=== PATIENT | female | born 1960 | race Caucasian/White ===

== ENCOUNTER → 2017-11-19 | Outpatient (CLI) | payer OTHER ==
[~2017-11-19] MED LIST: ALBU90OI61; ESTR2; FLUO10; MEDR2.5; Norco 10-325 T1 EACH; TRAZ50
== END ==
LOC: LAB 07:58 → LAB SHORT 07:58
DX: R21 Rash and other nonspecific skin eruption (principal)
CPT/HCPCS: 88305; 88312

== ENCOUNTER → 2018-12-21 | Outpatient (CLI) | payer OTHER ==
[2018-12-26 15:06] LABS: HPV 16 Negative (Negative); HPV 18 Negative (Negative); HPV OTHER HR TYPES Negative (Negative)
== END | disposition home or self-care (01) ==
LOC: LAB SHORT 19:22 → LAB 19:22
PROVIDERS: Physician Assistant
DX: Z12.4 Encounter for screening for malignant neoplasm of cervix (principal)
CPT/HCPCS: 87624; G0145

== ENCOUNTER 2019-09-28 15:19 | Observation (INO) | payer OTHER ==
[~2019-09-28] VITALS: Ht 165.1 cm; Wt 74.8 kg
[~2019-09-28 15:19] MED LIST changes: -TRAZ50
[2019-09-28 16:01] LABS: BASOPHILS ABSOLUTE AUTO 0.05 K/mm3 (0.00-0.23); BASOPHILS PERCENT AUTO 1 % (0-2); EOSINOPHILS ABSOLUTE AUTO 0.18 K/mm3 (0.00-0.68); EOSINOPHILS PERCENT AUTO 3 % (0-6); Hematocrit 44.8 % (33.0-51.0); Hemoglobin 14.2 g/dL (11.5-16.0); IMMATURE GRAN ABSOLUTE AUTO 0.01 K/mm3 (0.00-0.10); IMMATURE GRAN PERCENT AUTO 0 % (0-1); LYMPHOCYTES ABSOLUTE AUTO 2.88 K/mm3 (0.84-5.20); LYMPHOCYTES PERCENT AUTO 45 % (21-46); MONOCYTES PERCENT AUTO 8 % (4-13); Mean Corpuscular HGB 28.1 pg (26.0-34.0); Mean Corpuscular HGB Conc 31.7 g/dL (31.5-36.5); Mean Corpuscular Volume 89 fL (80-100); Mean Platelet Volume 9.6 fL (9.1-12.4); NEUTROPHILS ABSOLUTE AUTO 2.75 K/mm3 (1.96-9.15); NEUTROPHILS PERCENT AUTO 43 % (41-73); Platelet Count 291 K/mm3 (150-400); RDW Coefficient Variation 13.2 % (11.7-14.2); Red Blood Cell Count 5.05 M/mm3 (3.80-5.20); White Blood Cell Count 6.37 K/mm3 (4.00-11.30)
[2019-09-28 16:09] LABS: Source, Urine Clean Catch
[2019-09-28 16:11] LABS: Alanine Aminotransfer (ALT/SGP 17 U/L (12-78); Albumin, Blood 3.8 g/dL (3.4-5.0); Albumin/Globulin Ratio 1.2 (0.8-1.8); Alk Phos 51 U/L (50-136); Anion Gap 1 mmol/L (6-16); Aspartate Aminotrans (AST/SGOT 15 U/L (12-37); Bilirubin, Total 0.5 mg/dL (0.1-1.0); Blood Urea Nitrogen 8 mg/dL (8-24); Bun/Creatinine Ratio 10.3 (12.0-20.0); CO2, Blood 30 mmol/L (21-32); Calcium, Blood 8.9 mg/dL (8.5-10.1); Chloride, Blood 109 mmol/L (98-108); Creatinine, Blood 0.78 mg/dL (0.40-1.00); Ethanol (Alcohol), Blood, Med <3 mg/dL; Globulin, Blood 3.1 g/dL (2.2-4.0); Glomerular Filtration Rate >60 (60-); Glucose, Blood 97 mg/dL (70-99); Potassium, Blood 3.5 mmol/L (3.5-5.5); Salicylate 3.2 mg/dL (2.8-20.0); Sodium, Blood 140 mmol/L (136-145); Total Protein, Blood 6.9 g/dL (6.4-8.2)
[2019-09-28 16:12] LABS: Acetaminophen, Random <2.0 ug/mL (10.0-30.0)
[2019-09-28 16:12] LABS: Bilirubin, Urine Neg (Neg); Blood, Urine Neg (Neg); Glucose Qualitative, Urine Neg (Neg); Ketones, Urine Neg (Neg); Leukocyte Esterase, Urine Neg (Neg); Nitrite, Urine Neg (Neg); Protein, Urine Neg (Neg); Urobilinogen, Urine NORM (Normal)
[2019-09-28 16:20] LABS: Appearance, Urine Clear (Clear); Color, Urine Yellow (P-Yellow)
[2019-09-28 16:33] LABS: U Cannabinoids Screen DETECTED
[2019-09-28 16:34] LABS: U Amphetamine Screen Not Detected; U Barbituate Screen Not Detected; U Benzodiazapine Screen Not Detected; U Buprenorphine Screen Not Detected; U Cocaine Screen Not Detected; U Methadone Screen Not Detected; U Methamphetamine Screen Not Detected; U Opiates Screen Not Detected; U Oxycodone Screen Not Detected; U Propoxyphene Screen Not Detected
[2019-09-28] MEDS ORDERED: Seroquel Xr50 MG (18:49)
[2019-09-29] MEDS ORDERED: TRAZ150T57 PO (13:04)
[2019-09-29] MEDS ORDERED: LEVSOD25 PO (13:05)
[2019-09-29] MEDS ORDERED: VENL150ER PO (13:05)
[2019-09-29] MEDS ORDERED: TRELEGY ELLIPT1 EACH INH (13:06)
[2019-09-29] MEDS ORDERED: Zoloft100 MG PO (13:07)
[2019-09-29] MEDS ORDERED: CLON.5 PO (13:08)
== END 2019-09-29 19:00 | disposition home or self-care (01) ==
LOC: ER 15:19 → EOR 16:15
PROVIDERS: ADMIT Emergency Medicine
DX: T42.4X2A Poisoning by benzodiazepines, intentional self-harm, initial encounter (principal); F41.9 Anxiety disorder, unspecified; F17.200 Nicotine dependence, unspecified, uncomplicated; F32.9 Major depressive disorder, single episode, unspecified; F19.11 Other psychoactive substance abuse, in remission; Z88.1 Allergy status to other antibiotic agents; Z88.2 Allergy status to sulfonamides; Z79.899 Other long term (current) drug therapy
CPT/HCPCS: 80053; 81003; 81025; 84443; 85025; 93005; 93010; 99285-25; G0378; G0480

== ENCOUNTER 2020-07-20 20:48 | Observation (INO) | payer OTHER ==
[~2020-07-20] VITALS: Ht 165.1 cm; Wt 70.3 kg
[~2020-07-20 20:48] MED LIST changes: +CLON.5 PO; +LEVSOD25 PO; +Seroquel Xr50 MG; +TRAZ150T57 PO; +TRELEGY ELLIPT1 EACH INH; +VENL150ER PO; +Zoloft100 MG PO
[2020-07-20 21:56] LABS: BASOPHILS ABSOLUTE AUTO 0.04 K/mm3 (0.00-0.23); BASOPHILS PERCENT AUTO 1 % (0-2); EOSINOPHILS ABSOLUTE AUTO 0.12 K/mm3 (0.00-0.68); EOSINOPHILS PERCENT AUTO 2 % (0-6); Hematocrit 41.8 % (33.0-51.0); Hemoglobin 13.5 g/dL (11.5-16.0); IMMATURE GRAN ABSOLUTE AUTO 0.02 K/mm3 (0.00-0.10); IMMATURE GRAN PERCENT AUTO 0 % (0-1); LYMPHOCYTES ABSOLUTE AUTO 2.81 K/mm3 (0.84-5.20); LYMPHOCYTES PERCENT AUTO 35 % (21-46); MONOCYTES ABSOLUTE AUTO 0.59 K/mm3 (0.16-1.47); MONOCYTES PERCENT AUTO 7 % (4-13); Mean Corpuscular HGB 28.7 pg (26.0-34.0); Mean Corpuscular HGB Conc 32.3 g/dL (31.5-36.5); Mean Corpuscular Volume 89 fL (80-100); Mean Platelet Volume 8.9 fL (9.1-12.4); NEUTROPHILS ABSOLUTE AUTO 4.35 K/mm3 (1.96-9.15); NEUTROPHILS PERCENT AUTO 55 % (41-73); Platelet Count 304 K/mm3 (150-400); RDW Coefficient Variation 12.9 % (11.7-14.2); RDW Standard Deviation 42.3 fL (35.1-46.3); White Blood Cell Count 7.93 K/mm3 (4.00-11.30)
[2020-07-20 22:16] LABS: Alanine Aminotransfer (ALT/SGP 35 U/L (12-78); Albumin, Blood 3.7 g/dL (3.4-5.0); Albumin/Globulin Ratio 1.2 (0.8-1.8); Alk Phos 50 U/L (50-136); Anion Gap 6 mmol/L (6-16); Aspartate Aminotrans (AST/SGOT 38 U/L (12-37); Bilirubin, Total 0.5 mg/dL (0.1-1.0); Blood Urea Nitrogen 11 mg/dL (8-24); Bun/Creatinine Ratio 14.3 (12.0-20.0); CO2, Blood 24 mmol/L (21-32); Chloride, Blood 110 mmol/L (98-108); Creatinine, Blood 0.77 mg/dL (0.40-1.00); Globulin, Blood 3.1 g/dL (2.2-4.0); Glomerular Filtration Rate >60 (60-); Glucose, Blood 94 mg/dL (70-99); Potassium, Blood 3.6 mmol/L (3.5-5.5); Sodium, Blood 140 mmol/L (136-145); Total Protein, Blood 6.8 g/dL (6.4-8.2); Troponin I <0.015 ng/mL (0.000-0.040)
[2020-07-20 22:45] LABS: Source, Urine Clean Catch
[2020-07-20 22:48] LABS: Bilirubin, Urine Neg (Neg); Blood, Urine Neg (Neg); Glucose Qualitative, Urine Neg (Neg); Ketones, Urine Neg (Neg); Leukocyte Esterase, Urine Neg (Neg); Nitrite, Urine Neg (Neg); Protein, Urine Neg (Neg); Urobilinogen, Urine NORM (Normal)
[2020-07-20 22:49] LABS: Appearance, Urine Clear (Clear); Color, Urine Yellow (P-Yellow)
[2020-07-21 01:23] LABS: Influenza A, PCR Negative (NEGATIVE); Influenza B, PCR Negative (NEGATIVE); Resp Syncytial Virus, PCR Negative (NEGATIVE); SARS-Cov-2 (COVID-19) PCR, MMC Negative (NEGATIVE)
--- NOTE | 2020-07-21 06:16 | NUR ---
SHIFT SUMMARY: VAL IS A&OX4, VSS, INDEPENDENT IN THE ROOM. SHE IS LYING IN BED WITH EVEN, UNLABORED RESPIRATIONS. CALL LIGHT AND BEDSIDE TABLE WITHIN REACH. WILL REPORT TO DAY SHIFT RN.
--- NOTE | 2020-07-21 06:19 | NUR ---
SHIFT SUMMARY NEW ADMISSION THIS AM. NPO. DISCOMFORT DECREASED WITH 1MG IV DILAUDID X1 SINCE ARRIVAL TO FLOOR. DENIES NAUSEA/EMESIS. PT REPORTING DISCOMFORT SINCE SURGERY 4 YEARS PRIOR WITH AN ACUTE SHARP INCREASE SINCE 1400 ON 07/20. IVF PER ORDERS. ORIENTED TO ROOM + CALL LIGHT USE. GI CONSULT TODAY. PT CURRENTLY RESTING WITH CALL LIGHT IN REACH.
[2020-07-21] MEDS ORDERED: OMEP20ER PO (13:27)
[2020-07-21] MEDS ORDERED: TRAM50 PO (13:29)
--- NOTE | 2020-07-21 14:09 | NUR ---
DISCHARGE SUMMARY ACUTE GASTRITIS, A/O X4, VSS, INDEPENDENT IN ROOM, TOLERATING PO, PAIN WELL CONTROLLED. DISCUSSED DISCHARGE INSTRUCTIONS W/ PT & FAMILY MEMBER, WENT OVER NEW AND CHANGED MEDICATIONS, FOLLOW UP APPOINTMENTS, GAVE PRINTED INSTRUCTIONS AND EDUCATION TO PT. GAVE HARD SCRIPT FOR NARCOTIC PAIN MEDICATION TO PT. PT LEFT THE SURGICAL UNIT VIA WHEELCHAIR W/ ALL PERSONAL POSSESSIONS. CLEARED PT TO DISCHARGE PRIOR TO RECEIVING GI CONSULT. PT REPORTS NOT HAVING ANY QUESTIONS REGARDING ANY DISCHARGE INSTRUCTIONS.
== END 2020-07-21 13:58 | disposition home or self-care (01) ==
LOC: ER 20:48 → SURS 20:49
PROVIDERS: Emergency Medicine; ADMIT Internal Medicine
DX: R10.11 Right upper quadrant pain (principal); R11.2 Nausea with vomiting, unspecified; E03.9 Hypothyroidism, unspecified; J44.9 Chronic obstructive pulmonary disease, unspecified; F41.9 Anxiety disorder, unspecified; F17.200 Nicotine dependence, unspecified, uncomplicated; Z20.828 Contact with and (suspected) exposure to other viral communicable diseases; Z90.49 Acquired absence of other specified parts of digestive tract; Z23 Encounter for immunization; Z88.1 Allergy status to other antibiotic agents; Z88.2 Allergy status to sulfonamides; Z79.51 Long term (current) use of inhaled steroids; Z79.899 Other long term (current) drug therapy
CPT/HCPCS: 0241U; 36415; 71045; 74177; 80053; 81003; 83605; 83690; 84484; 85025; 93005; 93010; 96372; 96374-59; 96375; 96376; 99285-25; A9270; G0008; G0378; J1170; J1650; J2405; J3010; J7030; J7120; Q2038; Q9967

== ENCOUNTER 2021-01-09 09:26 | Day surgery (SDC) | payer OTHER ==
[~2021-01-09] VITALS: Ht 162.6 cm; Wt 76.5 kg
[~2021-01-09 09:26] MED LIST changes: +OMEP20ER PO; +TRAM50 PO
[2021-01-09] MEDS ORDERED: CIME400 (09:53)
== END 2021-01-09 11:05 | disposition home or self-care (01) ==
LOC: ORSCSDS 09:26
PROVIDERS: Student in an Organized Health Care Education/Training Program
PROC: 0DB68ZX Excision of Stomach, Via Natural or Artificial Opening Endoscopic, Diagnostic (ICD-10-PCS; principal; 2021-01-09 10:45)
PROC: 0DB98ZX Excision of Duodenum, Via Natural or Artificial Opening Endoscopic, Diagnostic (ICD-10-PCS; principal; 2021-01-09 10:45)
DX: R10.13 Epigastric pain (principal); J44.9 Chronic obstructive pulmonary disease, unspecified; F32.9 Major depressive disorder, single episode, unspecified; K44.9 Diaphragmatic hernia without obstruction or gangrene; F17.210 Nicotine dependence, cigarettes, uncomplicated; Z79.899 Other long term (current) drug therapy
CPT/HCPCS: 88305; 88342; J2250; J2704; J7120